=== PATIENT | female | born 1975 | race Caucasian/White ===

== ENCOUNTER → 2017-01-17 | Outpatient (CLI) | payer OTHER ==
--- NOTE | 2017-01-17 15:04 | REPMRS ---
Patient History The patient states she has not had a clinical breast exam in over a year. Patient has history of basal cell skin cancer at age 32. No known family history of cancer. Retro-pectoral silicone gel implants in both breasts, January 2007. Digital Woman Screen Mammo: January 17, 2017 - Exam #: [id number] Bilateral CC and MLO view(s) were taken. Technologist: Helen Mcmillan, Technologist Prior study comparison: 2014, digital bilateral screening mammo. FINDINGS: There are scattered fibroglandular densities. There is no evidence of cancer on this mammogram. ASSESSMENT: BI-RADS/ACR category 2 mammogram. Benign finding(s). Recommendation Routine screening mammogram of both breasts in 1 year (for women over age 40). This mammogram was interpreted with the aid of an FDA-approved computer-aided dectection system. Electronically Signed By: Wilman Nath MD 01/17/17 [id number]
== END ==
LOC: M WHC 14:02
PROVIDERS: ATTEND Internal Medicine
DX: Z12.31 Encounter for screening mammogram for malignant neoplasm of breast (principal)

== ENCOUNTER → 2017-12-25 | Outpatient (CLI) | payer OTHER ==
[2018-01-01 14:04] LABS: SUMMARY SEE SEPARATE REPORT
== END ==
LOC: M SLEEP 19:26
DX: F51.9 Sleep disorder not due to a substance or known physiological condition, unspecified (principal); F51.4 Sleep terrors [night terrors]
CPT/HCPCS: 95810